=== PATIENT | male | born 1945 | race Caucasian/White ===

== ENCOUNTER 2024-08-16 11:49 | Emergency (ER) | payer OTHER, SELFPAY ==
--- NOTE | ~2024-08-16 | XR_ITS ---
EXAMINATION: XR CHEST CLINICAL INFORMATION: sob COMPARISON: None available. TECHNIQUE: 2 views of the chest were obtained. FINDINGS: Lungs appear hyperinflated with widened AP diameter suggesting chronic pulmonary disease. Linear atelectasis or scarring in the left lower lobe. No consolidation, edema, or effusion. Cardiomediastinal silhouette. XR/XR chest 2V IMPRESSION: COPD. No acute cardiopulmonary findings. Electronically signed by: Blake Trejo MD 08/16/2024 02:37 PM EST
--- NOTE | 2024-08-16 11:54 | ECG_ITS ---
Test Reason : DIFF URINATING Blood Pressure : / mmHG Vent. Rate : 109 BPM Atrial Rate : 109 BPM P-R Int : 164 ms QRS Dur : 080 ms QT Int : 308 ms P-R-T Axes : -01 038 021 degrees QTc Int : 414 ms Sinus tachycardia Otherwise normal ECG No previous ECGs available Referred By: Kristel Barlow Electronically Signed By:BECK OSPINA
[2024-08-16 12:15] VITALS: BP 153/78; PULSE 112; RESP 18; TEMP 36.3; O2SAT 93; BMI 21.1
--- NOTE | 2024-08-16 12:16 | ED.GENADULT ---
HPI - General Adult General Chief complaint: Urogenital-Male Stated complaint: Elevated Heartrate Urgency of Urination Time Seen by Provider: 08/16/24 18:47 Source: patient, family () and RN notes reviewed Mode of arrival: ambulatory Limitations: no limitations History of Present Illness ED Provider: Neftaly MONTENEGRO narrative: 79-year-old male presents for evaluation of weakness Patient reports he has felt fatigued for the last 2 days. He has had increased urinary urgency. He reports when he has to pee ?only a little bit comes out. ? He denies any abdominal pain or flank pain. Denies any fevers, chills. Denies any cough, shortness of breath, chest pain. Denies any leg swelling. He denies any blood in the urine He reports that his heart rate has been elevated Related Data Previous Rx's ?Medication ?Instructions ?Recorded cefpodoxime 200 mg tablet 200 mg PO Q12H #14 tabs 08/16/24 Allergies Allergy/AdvReac Type Severity Reaction Status Date / Time No Known Allergies Allergy Verified 08/16/24 12:18 Review of Systems Constitutional: Constitutional: Denies body ache(s), Denies chills, Denies fever(s), Reports lethargy, Reports malaise and Reports weakness Eyes: Eyes: Denies blurry vision ENT: Denies vertigo and Denies dizziness Cardiovascular: Cardiovascular: Denies chest pain, Denies chest pain at rest and Denies dyspnea Respiratory: Respiratory: Denies cough and Denies dyspnea Genitourinary: Genitourinary: Reports difficulty urinating, Denies genital pain, Denies dysuria, Reports urinary frequency, Denies urinary incontinence and Reports urinary urgency Musculoskeletal: Musculoskeletal: Denies back pain Integumentary/Breasts: Skin/Breast: Denies rash Neurologic: Denies vertigo, Denies dizziness and Reports weakness Psychiatric: Psychiatric: Denies anxiety PMFSH Social History Social History Advance Directives: No Advance Directives Information Provided: No Do you have a plan to hurt others: No Plan Physical Exam ED Vital Signs: Vital Signs - 24 hr 08/16/24 12:15 08/16/24 18:45 08/16/24 20:00 Temperature 97.3 F 98.8 F 99.5 F Pulse Rate 112 H 123 H 117 H Respiratory Rate 18 20 20 Blood Pressure 153/78 H 139/88 133/86 Pulse Oximetry 93 96 94 Oxygen Delivery Method Room Air Room Air Nasal Cannula Oxygen Flow Rate 2 08/16/24 20:09 Temperature Pulse Rate Respiratory Rate Blood Pressure Pulse Oximetry 88 L Oxygen Delivery Method Oxygen Flow Rate BMI result Body Mass Index 21.1 Const General: healthy appearing, comfortable, no acute distress, alert and awake Nutritional Appearance: well nourished Orientation/consciousness: patient oriented x3 HENMT Head: Yes normocephalic and Yes atraumatic Eyes Eyelids: Yes eyelids normal Conjunctivae: conjunctivae normal Sclerae: sclerae normal Corneas: corneas normal Pupils: Equal, round and reactive pupils present EOM: EOMs intact bilaterally Neck Neck: Yes full ROM Resp Effort & Inspection: normal respiratory effort, able to speak in complete sentences, no audible wheezes and not labored Auscultation: clear to auscultation bilaterally Cardio Rate: regular rate Rhythm: regular rhythm GI Inspection: No distended Palpation (GI): Soft to palpation, not firm, nontender, no guarding and not rigid Skin General skin exam: elasticity normal Neuro General: patient oriented x3 Cranial nerves: Yes Equal, round and reactive pupils present and Yes Bilaterally intact EOM present Cognition (Neuro): normal cognition Extrem Other: Moving all extremities well without any obvious deformities Course Course Course Narrative: This is an RME: Additional HPI, ROS, PE not included below will be deferred to primary provider. RME assessment and note performed by: Kristel Barlow PA-C This is a 26-pggn-keo-male, with a hx of HTN and glaucoma, who presents to the ER with complaints of urinary frequency, urgency and generalized weakness. He had an elevated heart rate last night in the 130s. Pt also reporting some shortness of breath. No chest pain. No fevers at home. Pt tachycardic at 111, afebrile. Plan: Labs, ekg, chest xray, UA, further er eval needed Reevaluation(s) Reevaluation #1: Patient's urinalysis does show an obvious urinary tract infection. He remains tachycardic but it did improve after oral fluids. The patient did have some hematuria, he has no abdominal pain or flank pain, I doubt obstructive uropathy. I discussed possible admission with the patient for pyelonephritis. The patient would prefer to go home, his is bedside and reports that the patient be more comfortable at home. I did discuss return precautions. Time: 20:50 Medications Administered Discontinued Medications Generic Name Dose Route Start Last Admin Trade Name Stacey PRN Reason Stop Dose Admin Cefuroxime Axetil 500 mg 08/16/24 20:49 08/16/24 20:56 Cefuroxime Axetil 500 Mg Tablet PO 08/16/24 20:50 500 mg ONCE ONE Administration Medical Decision Making Medical Decision Making [facility] Narrative: 79-year-old male presents for evaluation of urinary urgency. He was tachycardic to 120 but is afebrile. He has a mild leukocytosis with a left shift. He does appear well otherwise, he is not hypotensive. He had a lactic acid that was ordered in his normal at 2.0. The patient is not septic. He does likely have a UTI, urinalysis is pending. I offered IV fluids, the patient declined and reports that he is not nauseous or vomiting so he would like to hydrate orally. He was provided with water Differential Diagnosis Differential Diagnoses: The differential diagnosis associated with the presentation includes UTI Pyelonephritis Obstructive uropathy BPH Lab Data [facility] Lab Attestation statement: I reviewed the patient's lab results. Leukocytosis with a left shift. No significant anemia. Patient's platelet count is slightly low at 110, unclear etiology. Electrolytes and renal function within normal limits. 08/16/24 12:39 08/16/24 12:39 Labs: Lab Results 08/16/24 08/16/24 Range/Units 12:39 19:40 WBC 14.6 H (4.8-10.8) X10*3/uL RBC 4.52 L (4.60-5.80) X10*6/uL Hgb 14.6 (14.0-18.0) g/dl Hct 41.7 L (42.0-52.0) % MCV 92.3 (80.0-98.0) fL MCH 32.3 (27.0-33.0) pg MCHC 35.0 (31.0-36.0) g/dl RDW 12.7 (11.0-16.0) % Plt Count 110 L (160-400) X10*3/uL MPV 10.6 (9.4-12.4) fL Immature Gran % (Auto) 0.8 H (0.0-0.4) % Neut % (Auto) 81.6 H (45-73) % Lymph % (Auto) 9.4 L (20-40) % Hendry % (Auto) 8.1 (2-11) % Eos % (Auto) 0.0 (0-4) % Baso % (Auto) 0.1 (0-2) % Lymph # (Auto) 1.4 (1.2-4.9) X10*3/uL Hendry # (Auto) 1.2 (0.1-1.2) X10*3/uL Eos # (Auto) 0.0 (0.0-0.4) X10*3/uL Baso # (Auto) 0.0 (0.0-0.2) X10*3/uL Abs Immat Gran (auto) 0.11 H (0.00-0.03) X10*3/uL Absolute Neuts (auto) 11.9 H (2.0-8.3) x10*3/uL Absolute Nucleated RBC 0.000 (0.0-0.012) X10*3/uL Nucleated RBC % (auto) 0.0 (0.0-0.2) /100WBC Sodium 137 (135-145) mmol/L Potassium 3.9 (3.3-5.1) mmol/L Chloride 102 (96-108) mmol/L Carbon Dioxide 25 (22-29) mmol/L Anion Gap 14 (12-20) BUN 15 (9-16) mg/dL Creatinine 1.21 (0.5-1.4) mg/dL Estim Creat Clear Calc 41.4 Estimated GFR 58 Random Glucose 132 H (60-115) mg/dL Lactic Acid 2.0 (0.5-2.0) mmol/L Calcium 9.4 (8.4-10.2) mg/dL Magnesium 2.0 (1.6-2.6) mg/dL Total Bilirubin 1.2 H (0.0-1.0) mg/dL Direct Bilirubin 0.5 (0.0-0.5) mg/dL AST 28 (5-37) U/L ALT 19 (0-40) U/L Alkaline Phosphatase 59 (39-117) U/L Troponin I High Sens 2.7 (<3.5-35.0) ng/L Total Protein 7.5 (6.5-8.0) g/dL Albumin 4.3 (3.5-5.0) g/dL Lipase 10 (8-78) U/L Urine Color Dark Yellow Urine Appearance Cloudy Urine pH 5.5 (5.0-9.0) Ur Specific [place]osia 1.020 (1.005-1.025) Urine Protein 100 (2+) H (Neg-Trace) mg/dL Urine Glucose (UA) Negative (Negative) mg/dL Urine Ketones Negative (Negative) mg/dL Urine Blood Moderate (2+) H (Negative) Urine Nitrite Positive H (Negative) Ur Leukocyte Esterase Moderate (2+) H (Negative) Urine RBC 3-5 H (0-2) /HPF Urine WBC >50 H (0-5) /HPF Ur Squamous Epith Cells 3-5 (0-2) /HPF Urine Bacteria 4+ (None Seen) Hyaline Casts 0-2 (0-2) /LPF Influenza Type A (PCR) NEGATIVE (Negative) Influenza Type B (PCR) NEGATIVE (Negative) RSV RNA Qual (PCR) NEGATIVE (Negative) SARS-CoV-2 RNA (RT-PCR) NEGATIVE (Negative) Discharge Plan Discharge Clinical Impression: Urinary tract infection Patient Disposition: Home, Self-Care Instructions: Urinary Tract Infection in Men (ED) Additional Instructions: Take your antibiotic twice daily for the next 7 days for a urinary tract infection Hydrate well. Follow-up with your primary doctor, return for new or worsening symptoms Prescriptions: New cefpodoxime 200 mg tablet 200 mg PO Q12H Qty: 14 0RF Rx Instructions: must administer with a meal/food Print Language: [place]
[2024-08-16 12:46] LABS: MANUAL DIFF FLAG NO
[2024-08-16 12:49] LABS: Basophils Percent Auto 0.1 % (0-2); Hematocrit 41.7 % (42.0-52.0); Hemoglobin 14.6 g/dl (14.0-18.0); Imm Gran Abs Auto 0.11 X10*3/uL (0.00-0.03); Imm Gran Pct Auto 0.8 % (0.0-0.4); Lymphocytes Absolute Auto 1.4 X10*3/uL (1.2-4.9); Lymphocytes Percent Auto 9.4 % (20-40); Mean Corpuscular Hemoglobin 32.3 pg (27.0-33.0); Mean Corpuscular Volume 92.3 fL (80.0-98.0); Mean Platelet Volume 10.6 fL (9.4-12.4); Monocytes Absolute Auto 1.2 X10*3/uL (0.1-1.2); Monocytes Percent Auto 8.1 % (2-11); Neutrophils Absolute Auto 11.9 x10*3/uL (2.0-8.3); Neutrophils Percent Auto 81.6 % (45-73); Platelet Count 110 X10*3/uL (160-400); Red Blood Count 4.52 X10*6/uL (4.60-5.80); Red Cell Distribution Width 12.7 % (11.0-16.0); White Blood Count 14.6 X10*3/uL (4.8-10.8)
[2024-08-16 13:03] LABS: Alanine Aminotransferase 19 U/L (0-40); Albumin Level 4.3 g/dL (3.5-5.0); Alkaline Phosphatase 59 U/L (39-117); Anion Gap 14 (12-20); Aspartate Amino Transferase 28 U/L (5-37); Bilirubin Direct 0.5 mg/dL (0.0-0.5); Bilirubin Total 1.2 mg/dL (0.0-1.0); Blood Urea Nitrogen 15 mg/dL (9-16); Calcium 9.4 mg/dL (8.4-10.2); Carbon Dioxide 25 mmol/L (22-29); Chloride 102 mmol/L (96-108); Creatinine Clr Calc Pharmacy 41.4; Estimated Glomerular Filt Rate 58; Glucose Random 132 mg/dL (60-115); Lipase 10 U/L (8-78); Potassium 3.9 mmol/L (3.3-5.1); Sodium 137 mmol/L (135-145); Total Protein 7.5 g/dL (6.5-8.0)
[2024-08-16 13:10] LABS: Troponin-I High Sensitivity 2.7 ng/L (<3.5-35.0)
[2024-08-16 13:26] LABS: Influenza A PCR NEGATIVE (Negative); Influenza B PCR NEGATIVE (Negative); Resp Syncy Virus RNA Qual PCR NEGATIVE (Negative); SARS COV2 PCR INHOUSE NEGATIVE (Negative)
[2024-08-16 18:45] VITALS: BP 139/88; PULSE 123; RESP 20; TEMP 37.1; O2SAT 96
[2024-08-16 20:00] VITALS: BP 133/86; PULSE 117; RESP 20; TEMP 37.5; O2SAT 94
[2024-08-16 20:09] VITALS: O2SAT 88
[2024-08-16 20:13] LABS: Appearance Urine Cloudy; Color Urine Dark Yellow; Glucose Urine UA Negative (Negative); Leukocyte Esterase Urine Moderate (2+) (Negative); Nitrite Urine Positive (Negative); PH 5.5 (5.0-9.0); UMIC TRIGGER UACC YES; Urine Blood Moderate (2+) (Negative); Urine Ketones Negative (Negative); Urine Protein 100 (2+) mg/dL (Neg-Trace)
[2024-08-16 20:32] LABS: Bacteria Urine 4+ (None Seen); Hyaline Casts Urine 0-2 /LPF (0-2); UACC Culture Trigger YES; WBC Urine >50 /HPF (0-5)
[2024-08-16] MEDS: cefuroxime axetiL 500 MG TABLET PO (20:56)
[2024-08-16 21:35] VITALS: BP 166/103; PULSE 126; RESP 18; TEMP 36.7; O2SAT 88
== END 2024-08-16 21:42 | disposition home or self-care (01) ==
PROVIDERS: Physician Assistant Medical; Emergency Provider Emergency Medicine; PCP Internal Medicine
DX: N39.0 Urinary tract infection, site not specified (principal); R39.15 Urgency of urination; R00.0 Tachycardia, unspecified; R33.9 Retention of urine, unspecified; Z03.818 Encounter for observation for suspected exposure to other biological agents ruled out; Z79.899 Other long term (current) drug therapy
CPT/HCPCS: 0241U; 36415; 71046; 80048; 80076; 81001; 81003; 83605; 83690; 83735; 84484; 85025; 87040; 87086; 87088; 87186; 93005; 99283; 99284

== ENCOUNTER → 2024-08-16 11:54 | Outpatient (BNV) | payer MEDICARE, SELFPAY | PROVIDERS: Emergency Provider Emergency Medicine; PCP Internal Medicine; Visit Provider Internal Medicine | DX: R00.0 Tachycardia, unspecified (principal) | CPT/HCPCS: 93010 ==